=== PATIENT | female | born 1940 | race Caucasian/White ===

== ENCOUNTER 2024-03-22 23:14 | Inpatient (IN) | payer MEDICARE, OTHER ==
[2024-03-23 01:24] LABS: Basophils # (A) 0.1 k/uL (0-0.2); Basophils % (A) 1 %; Eosinophils # (A) 0.2 k/uL (0-0.7); Eosinophils % (A) 2 %; HCT 36.7 % (34.0-46.0); HGB 12.2 gm/dL (11.4-16.0); Lymphocytes # (A) 2.1 k/uL (1.0-4.8); Lymphocytes % (A) 23 %; MCH 30.7 pg (25.0-35.0); MCHC 33.4 g/dL (31.0-37.0); Mean Platelet Volume 7.5; Monocytes # (A) 0.6 k/uL (0-1.0); Monocytes % (A) 7 %; Neutrophils % (A) 67 %; Platelet Count 273 k/uL (150-450); RBC 3.99 m/uL (3.80-5.40); RDW 12.9 % (11.5-15.5)
[2024-03-23 01:38] LABS: African American GFR (CKD) 40 (>60 ml/min/1.73 sqM); Anion Gap 9 mmol/L; Blood Urea Nitrogen 25 mg/dL (7-17); C Reactive Protein 1.9 mg/dL (<1.0); Calcium 9.8 mg/dL (8.4-10.2); Carbon Dioxide 23 mmol/L (22-30); Chloride 105 mmol/L (98-107); Glucose 138 mg/dL (74-99); Non-African American GFR(CKD) 35 (>60 ml/min/1.73 sqM); Potassium 3.3 mmol/L (3.5-5.1); Sodium 137 mmol/L (137-145)
[2024-03-23] MEDS: IBUPROFEN 600 MG TAB PO STA (03:07)
[2024-03-23] MEDS: Acetaminophen-Codeine 300-30mg TAB PO STA (03:08)
[2024-03-23] MEDS ORDERED: NALOXONE 0.4 MG/ML 1 ML VIAL IV PRN (06:25)
[2024-03-23] MEDS ORDERED: Acetaminophen-Codeine 300-30mg TAB PO PRN (06:25)
--- NOTE | 2024-03-23 06:29 | ED ---
General Adult HPI - General Chief complaint: Skin/Abscess/Foreign Body Stated complaint: [place] Transfer Time Seen by Provider: 03/22/24 23:49 Source: patient Mode of arrival: ambulatory Limitations: no limitations - History of Present Illness Initial comments: Patient is an 83-year-old woman transferred from [facility] related to infection of the right second finger. The patient has been to the department in [place] twice for the same symptoms. She was seen the first time March 16 and started on doxycycline. The patient returned to the department there on March 19 she received a dose of IV Ancef and then was treated with Keflex. The patient returns today as the symptoms continued to worsen. While there she received dose of Onset/Timin -: week(s) Location: right, upper extremity Quality: aching Consistency: constant Improves with: none Worsens with: movement Associated Symptoms: denies other symptoms - Related Data Home Medications Medication Instructions Recorded Confirmed Memantine [Namenda] 10 mg PO DAILY 03/23/24 03/23/24 Metoprolol Tartrate [Lopressor] 50 mg PO BID 03/23/24 03/23/24 Previous Rx's Medication Instructions Recorded Colchicine [Colcrys] 0.6 mg PO BID 10 Days #18 each 03/26/24 Allergies Allergy/AdvReac Type Severity Reaction Status Date / Time peanut Allergy Unknown Verified 03/23/24 09:34 Childhood amoxicillin [From Augmentin] AdvReac Abdominal Verified 03/23/24 09:34 Pain choline fenofibrate AdvReac Unknown Verified 03/23/24 09:34 [From Trilipix] ciprofloxacin [From Cipro] AdvReac Unknown Verified 03/23/24 09:34 clavulanic acid AdvReac Abdominal Verified 03/23/24 09:34 [From Augmentin] Pain gabapentin AdvReac Unknown Verified 03/23/24 09:34 gemfibrozil AdvReac Unknown Verified 03/23/24 09:34 levofloxacin [From Levaquin] AdvReac Unknown Verified 03/23/24 09:34 lovastatin AdvReac Unknown Verified 03/23/24 09:34 montelukast [From Singulair] AdvReac Unknown Verified 03/23/24 09:34 naproxen AdvReac Abdominal Verified 03/23/24 09:34 Pain nitrofurantoin AdvReac Abdominal Verified 03/23/24 09:34 Pain omega-3 acid ethyl esters AdvReac Unknown Verified 03/23/24 09:34 [From Lovaza] pravastatin AdvReac Unknown Verified 03/23/24 09:34 rosuvastatin [From Crestor] AdvReac Unknown Verified 03/23/24 09:34 simvastatin AdvReac Unknown Verified 03/23/24 09:34 Sulfa (Sulfonamide AdvReac Abdominal Verified 03/23/24 09:34 Antibiotics) Pain sulfamethoxazole AdvReac Nausea Verified 03/23/24 09:34 [From Bactrim] trimethoprim [From Bactrim] AdvReac Nausea Verified 03/23/24 09:34 Review of Systems ROS Statement: Those systems with pertinent positive or pertinent negative responses have been documented in the HPI. ROS Other: All systems not noted in ROS Statement are negative. Constitutional: Denies: fever, chills Respiratory: Denies: cough, dyspnea Cardiovascular: Denies: chest pain, palpitations Gastrointestinal: Denies: abdominal pain Musculoskeletal: Reports: as per HPI, joint swelling Neurological: Denies: weakness, numbness Past Medical History Past Medical History: Hyperlipidemia Past Surgical History: No Surgical Hx Reported Past Psychological History: No Psychological Hx Reported Smoking Status: Never smoker Past Alcohol Use History: None Reported Past Drug Use History: None Reported General Exam Limitations: no limitations General appearance: alert, in no apparent distress Head exam: Present: atraumatic, normocephalic Eye exam: Absent: scleral icterus, conjunctival injection Respiratory exam: Present: normal lung sounds bilaterally. Absent: respiratory distress, wheezes, rales, rhonchi, stridor, accessory muscle use Cardiovascular Exam: Present: regular rate, normal rhythm, normal heart sounds. Absent: systolic murmur, diastolic murmur, rubs, gallop GI/Abdominal exam: Present: soft. Absent: tenderness Extremities exam: Present: tenderness, normal capillary refill Right Upper Arm exam: Present: normal inspection Elbow exam: Present: normal inspection, full ROM. Absent: tenderness, swelling Forearm Wrist exam: Present: normal inspection, full ROM. Absent: tenderness, swelling Hand Wrist exam: Present: tenderness, swelling, erythema. Absent: full ROM Vascular: Present: normal capillary refill. Absent: vascular compromise, pulse deficit radial art, pulse deficit ulnar art, pulse deficit brachial art Back exam: Present: normal inspection. Absent: CVA tenderness (R), CVA tende rness (L) Neurological exam: Present: alert. Absent: motor sensory deficit Skin exam: Present: warm, dry, intact, normal color. Absent: rash Course Vital Signs 03/22/24 03/23/24 03/23/24 23:27 02:10 06:30 Temperature 97.4 F L Pulse Rate 55 L 60 47 L Respiratory 20 18 18 Rate Blood Pressure 137/63 140/69 128/62 O2 Sat by Pulse 97 97 99 Oximetry 03/23/24 03/23/24 03/23/24 09:21 10:01 12:19 Temperature 96.8 F L 98.0 F Pulse Rate 50 L 47 L 50 L Respiratory 18 16 18 Rate Blood Pressure 141/57 136/56 146/66 O2 Sat by Pulse 98 99 100 Oximetry 03/23/24 14:48 Temperature 97.4 F L Pulse Rate 52 L Respiratory 18 Rate Blood Pressure 142/82 O2 Sat by Pulse 99 Oximetry Medical Decision Making - Medical Decision Making Was pt. sent in by a medical professional or institution (, PA, FAMILY LAW ATTORNEY, urgent care, hospital, or group home...) When possible be specific @ -[No] Did you speak to anyone other than the patient for history (EMS, parent, family, police, friend...)? What history was obtained from this source @ -[No] Did you review nursing and triage notes (agree or disagree)? Why? @ -[I reviewed and agree with nursing and triage notes] Were old charts reviewed (outside hosp., previous admission, EMS record, old EKG, old radiological studies, urgent care reports/EKG's, group home records)? Report findings @ -[No old charts were reviewed] Differential Diagnosis (chest pain, altered mental status, abdominal pain women, abdominal pain men, vaginal bleeding, weakness, fever, dyspnea, syncope, headache, dizziness, GI bleed, back pain, seizure, CVA, palpatations, mental health, musculoskeletal)? @ -[Differential Musculoskeletal Muscular strain, contusion, ligament sprain, fracture, arthritis, septic arthritis, bursitis, cellulitis, muscle spasm, nerve compression, DVT, arterial occlusion, herpes zoster, electrolyte abnormality, tumor.... This is not meant to be in all inclusive list EKG interpreted by me (3pts min.). @ -[As above] X-rays interpreted by me (1pt min.). @ -[None done] CT interpreted by me (1pt min.). @ -[None done] U/S interpreted by me (1pt. min.). @ -[None done] What testing was considered but not performed or refused? (CT, X-rays, U/S, labs)? Why? @ -[None] What meds were considered but not given or refused? Why? @ -[None] Did you discuss the management of the patient with other professionals (professionals i.e. , PA, FAMILY LAW ATTORNEY, lab, RT, psych nurse, social services counselor, take away man, teacher, production officer, therapeutic case manager)? Give summary @ -[Patient discussed with admitting physician and treatment recommendations are incorporated Was smoking cessation discussed for >3mins.? @ -[No] Was critical care preformed (if so, how long)? @ -[No] Were there social determinants of health that impacted care today? How? (Homelessness, low income, unemployed, alcoholism, drug addiction, transportation, low edu. Level, literacy, decrease access to med. care, intermediate, rehab)? @ -[No] Was there de-escalation of care discussed even if they declined (Discuss DNR or withdrawal of care, Hospice)? DNR status @ -[No] What co-morbidities impacted this encounter? (DM, HTN, Smoking, COPD, CAD, Cancer, CVA, ARF, Chemo, Hep., AIDS, mental health diagnosis, sleep apnea, morbid obesity)? @ -[None] Was patient admitted / discharged? Hospital course, mention meds given and route, prescriptions, significant lab abnormalities, going to OR and other pertinent info. @ -[Patient is an 83-year-old woman transferred here to have admission for finger infection including orthopedic surgery consultation. Undiagnosed new problem with uncertain prognosis? @ -[No] Drug Therapy requiring intensive monitoring for toxicity (Heparin, Nitro, Insulin, Cardizem)? @ -[No] Were any procedures done? @ -[No] Diagnosis/symptom? @ -[Acute finger infection Acute, or Chronic, or Acute on Chronic? @ -Acute Uncomplicated (without systemic symptoms) or Complicated (systemic symptoms)? @ -[Uncomplicated Side effects of treatment? @ -[No] Exacerbation, Progression, or Severe Exacerbation? @ -[No] Poses a threat to life or bodily function? How? (Chest pain, [place], [place], pneumonia, PE, COPD, DKA, ARF, appy, cholecystitis, CVA, Diverticulitis, Homicidal, Suic idal, threat to staff... and all critical care pts) @ -Yes, there is threat to hand function should the infection worsen - Lab Data Result diagrams: 03/24/24 07:30 03/25/24 06:26 Lab Results 03/23/24 03/23/24 03/24/24 Range/Units 00:55 00:55 07:30 WBC 9.0 6.3 (3.8-10.6) k/uL RBC 3.99 3.78 L (3.80-5.40) m/uL Hgb 12.2 11.6 (11.4-16.0) gm/dL Hct 36.7 35.4 (34.0-46.0) % MCV 92.0 93.8 (80.0-100.0) fL MCH 30.7 30.6 (25.0-35.0) pg MCHC 33.4 32.7 (31.0-37.0) g/dL RDW 12.9 12.8 (11.5-15.5) % Plt Count 273 236 (150-450) k/uL MPV 7.5 7.7 Neutrophils % 67 64 % Lymphocytes % 23 25 % Monocytes % 7 5 % Eosinophils % 2 4 % Basophils % 1 1 % Neutrophils # 6.0 4.1 (1.3-7.7) k/uL Lymphocytes # 2.1 1.6 (1.0-4.8) k/uL Monocytes # 0.6 0.3 (0-1.0) k/uL Eosinophils # 0.2 0.3 (0-0.7) k/uL Basophils # 0.1 0.0 (0-0.2) k/uL Sodium 137 (137-145) mmol/L Potassium 3.3 L (3.5-5.1) mmol/L Chloride 105 (98-107) mmol/L Carbon Dioxide 23 (22-30) mmol/L Anion Gap 9 mmol/L BUN 25 H (7-17) mg/dL Creatinine 1.39 H (0.52-1.04) mg/dL Est GFR (CKD-EPI)AfAm 40 (>60 ml/min/1.73 sqM) Est GFR (CKD-EPI)NonAf 35 (>60 ml/min/1.73 sqM) Glucose 138 H (74-99) mg/dL Uric Acid (3.7-7.4) mg/dL Calcium 9.8 (8.4-10.2) mg/dL Total Bilirubin (0.2-1.3) mg/dL AST (14-36) U/L ALT (4-34) U/L Alkaline Phosphatase (38-126) U/L C-Reactive Protein 1.9 H (<1.0) mg/dL Total Protein (6.3-8.2) g/dL Albumin (3.5-5.0) g/dL TSH (0.465-4.680) mIU/L Random Vancomycin ug/mL 03/24/24 03/25/24 Range/Units 07:30 06:26 WBC (3.8-10.6) k/uL RBC (3.80-5.40) m/uL Hgb (11.4-16.0) gm/dL Hct (34.0-46.0) % MCV (80.0-100.0) fL MCH (25.0-35.0) pg MCHC (31.0-37.0) g/dL RDW (11.5-15.5) % Plt Count (150-450) k/uL MPV Neutrophils % % Lymphocytes % % Monocytes % % Eosinophils % % Basophils % % Neutrophils # (1.3-7.7) k/uL Lymphocytes # (1.0-4.8) k/uL Monocytes # (0-1.0) k/uL Eosinophils # (0-0.7) k/uL Basophils # (0-0.2) k/uL Sodium 138 (137-145) mmol/L Potassium 3.8 (3.5-5.1) mmol/L Chloride 109 H (98-107) mmol/L Carbon Dioxide 22 (22-30) mmol/L Anion Gap 7 mmol/L BUN 26 H (7-17) mg/dL Creatinine 1.42 H 1.28 H (0.52-1.04) mg/dL Est GFR (CKD-EPI)AfAm 39 44 (>60 ml/min/1.73 sqM) Est GFR (CKD-EPI)NonAf 34 38 (>60 ml/min/1.73 sqM) Glucose 100 H (74-99) mg/dL Uric Acid 9.3 H (3.7-7.4) mg/dL Calcium 9.4 (8.4-10.2) mg/dL Total Bilirubin 0.6 (0.2-1.3) mg/dL AST 19 (14-36) U/L ALT 11 (4-34) U/L Alkaline Phosphatase 71 (38-126) U/L C-Reactive Protein (<1.0) mg/dL Total Protein 6.0 L (6.3-8.2) g/dL Albumin 3.5 (3.5-5.0) g/dL TSH 0.552 (0.465-4.680) mIU/L Random Vancomycin 12.3 ug/mL Disposition Clinical Impression: Cellulitis of right finger Disposition: ADMITTED IP TO THIS HOSP Condition: Good Is patient prescribed a controlled substance at d/c from ED?: No
[2024-03-23] MEDS ORDERED: VANCOMYCIN IV PER PHARMACY 1 EACH MISC MISCELLANE PRN (06:31)
[2024-03-23] MEDS: VANCOMYCIN 1,000 MG in SODIUM CHLORIDE 0.9% 250 ML IVPB ONE (07:05)
[2024-03-23] MEDS: SODIUM CHLORIDE 0.9% 1,000 ML IV SCH (07:05)
[2024-03-23] MEDS: FAMOTIDINE 20 MG TAB PO SCH (09:19)
--- NOTE | 2024-03-23 11:50 | P.CNOR ---
History of Present Illness - HPI Consult date: 03/23/24 History of present illness: This is an 83-year-old female who is admitted for an infection of the right index finger. Patient is seen and evaluated at bedside today. Patient states that she first noticed swelling in the finger on 03/16/2024. Patient states that she was pulling weeds the day before, but denied any known injury to the finger. Patient states that she has been on oral and IV antibiotics over the last week without any significant improvement. Patient denies any fever/chills, chest pain, shortness breath, abdominal pain, numbness, weakness or tingling. Patient's past medical history significant for hyperlipidemia. Review of Systems See HPI. Past Medical History Past Medical History: Hyperlipidemia Past Surgical History: No Surgical Hx Reported Past Psychological History: No Psychological Hx Reported Smoking Status: Never smoker Past Alcohol Use History: None Reported Past Drug Use History: None Reported Medications and Allergies Home Medications Medication Instructions Recorded Confirmed Type Memantine [Namenda] 10 mg PO DAILY 03/23/24 03/23/24 History Metoprolol Tartrate [Lopressor] 50 mg PO BID 03/23/24 03/23/24 History hydroCHLOROthiazide [Hydrodiuril] 25 mg PO DAILY 03/23/24 03/23/24 History Allergies Allergy/AdvReac Type Severity Reaction Status Date / Time peanut Allergy Unknown Verified 03/23/24 09:34 Childhood amoxicillin [From Augmentin] AdvReac Abdominal Verified 03/23/24 09:34 Pain choline fenofibrate AdvReac Unknown Verified 03/23/24 09:34 [From Trilipix] ciprofloxacin [From Cipro] AdvReac Unknown Verified 03/23/24 09:34 clavulanic acid AdvReac Abdominal Verified 03/23/24 09:34 [From Augmentin] Pain gabapentin AdvReac Unknown Verified 03/23/24 09:34 gemfibrozil AdvReac Unknown Verified 03/23/24 09:34 levofloxacin [From Levaquin] AdvReac Unknown Verified 03/23/24 09:34 lovastatin AdvReac Unknown Verified 03/23/24 09:34 montelukast [From Singulair] AdvReac Unknown Verified 03/23/24 09:34 naproxen AdvReac Abdominal Verified 03/23/24 09:34 Pain nitrofurantoin AdvReac Abdominal Verified 03/23/24 09:34 Pain omega-3 acid ethyl esters AdvReac Unknown Verified 03/23/24 09:34 [From Lovaza] pravastatin AdvReac Unknown Verified 03/23/24 09:34 rosuvastatin [From Crestor] AdvReac Unknown Verified 03/23/24 09:34 simvastatin AdvReac Unknown Verified 03/23/24 09:34 Sulfa (Sulfonamide AdvReac Abdominal Verified 03/23/24 09:34 Antibiotics) Pain sulfamethoxazole AdvReac Nausea Verified 03/23/24 09:34 [From Bactrim] trimethoprim [From Bactrim] AdvReac Nausea Verified 03/23/24 09:34 Physical Examination On exam patient is resting comfortably in bed in no acute distress. Patient is alert and oriented 3. On exam the right index finger is moderately swollen. There is minimal erythema and skin is intact. Patient has limited motion of the right index finger secondary to swelling. Capillary refill is normal at less than 2 seconds. Patient does have mild swelling over the second MCP joint. There is tenderness to palpation over the right index finger. No tenderness to palpation over the remainder of the right hand. Sensation intact. Right upper extremity is warm and well-perfused. Neurovascular status and circulatory status are intact. Results - Labs Labs: Abnormal Lab Results - Last 24 Hours (Table) 03/23/24 Range/Units 00:55 Potassium 3.3 L (3.5-5.1) mmol/L BUN 25 H (7-17) mg/dL Creatinine 1.39 H (0.52-1.04) mg/dL Glucose 138 H (74-99) mg/dL C-Reactive Protein 1.9 H (<1.0) mg/dL H & H 03/23/24 Range/Units 00:55 Hgb 12.2 (11.4-16.0) gm/dL Hct 36.7 (34.0-46.0) % Result Diagrams: 03/23/24 00:55 03/23/24 00:55 Assessment and Plan (1) Cellulitis of right finger Current Visit: Yes Status: Acute Code(s): L03.011 - CELLULITIS OF RIGHT FING ER SNOMED Code(s): 73133343 (2) Swelling of right index finger Current Visit: Yes Status: Acute Code(s): M79.89 - OTHER SPECIFIED SOFT TISSUE DISORDERS SNOMED Code(s): 996902705 Plan: 1. Continue IV antibiotics along with warm compresses. 2. Patient is encouraged to work on range of motion as tolerated. 3. There is no surgical intervention planned. We will continue to follow the patient closely.
[2024-03-23] MEDS ORDERED: HYDROmorphone 0.5 MG/0.5 ML SYRINGE IVP PRN (13:41)
[2024-03-23] MEDS: ACETAMINOPHEN TAB 325 MG TAB PO PRN (18:58)
[2024-03-23] MEDS: HEPARIN SODIUM,PORCINE 5,000 UNIT/ML 1 ML VIAL SQ SCH (20:17)
--- NOTE | 2024-03-23 21:51 | P.CONS ---
History of Present Illness - Reason for Consult Consult date: 03/23/24 Finger infection Requesting physician: Melecio Martin - Chief Complaint Right index finger swelling x few days - History of Present Illness Patient is a 83-year-old female with a past medical history significant for hyperlipidemia, patient has been brought into the hospital for evaluation of right index finger pain and swelling in this patient symptoms started on 03/16/2024 and apparently patient has been working out in the yard pulling out weeds is not very clear if she has injured it and did not recall any bug bite patient has been evaluated in the outpatient setting and has been treated with the oral antibiotic in the form of doxycycline however the patient did not have any improvement patient also have multiple antibiotic allergies and subsequently patient was advised to go to the hospital for IV antibiotic patient denies high- grade fever or any chills has been complaining of mostly diffuse swelling and redness to the right index finger area currently declining local wound or any drainage patient did have pain especially when the area is touched otherwise denies significant pain patient on presentation the hospital was afebrile and no fever have been found subsequently patient white count 9.0., Creatinine has been mildly elevated CRP was 1.9 blood cultures obtained which are currently pending patient did have a evaluation by orthopedics recommending medical treatment no x-ray of the hand has been done currently on vancomycin pharmacy to dose infectious he was consulted for further management of antibiotic therapy Review of Systems Positive point and negatives has been mentioned in the HPI, complete review of systems was performed and all other systems are negative Past Medical History Past Medical History: Hyperlipidemia Past Surgical History: No Surgical Hx Reported Past Psychological History: No Psychological Hx Reported Smoking Status: Never smoker Past Alcohol Use History: None Reported Past Drug Use History: None Reported Medications and Allergies Home Medications Medication Instructions Recorded Confirmed Type Memantine [Namenda] 10 mg PO DAILY 03/23/24 03/23/24 History Metoprolol Tartrate [Lopressor] 50 mg PO BID 03/23/24 03/23/24 History hydroCHLOROthiazide [Hydrodiuril] 25 mg PO DAILY 03/23/24 03/23/24 History Allergies Allergy/AdvReac Type Severity Reaction Status Date / Time peanut Allergy Unknown Verified 03/23/24 09:34 Childhood amoxicillin [From Augmentin] AdvReac Abdominal Verified 03/23/24 09:34 Pain choline fenofibrate AdvReac Unknown Verified 03/23/24 09:34 [From Trilipix] ciprofloxacin [From Cipro] AdvReac Unknown Verified 03/23/24 09:34 clavulanic acid AdvReac Abdominal Verified 03/23/24 09:34 [From Augmentin] Pain gabapentin AdvReac Unknown Verified 03/23/24 09:34 gemfibrozil AdvReac Unknown Verified 03/23/24 09:34 levofloxacin [From Levaquin] AdvReac Unknown Verified 03/23/24 09:34 lovastatin AdvReac Unknown Verified 03/23/24 09:34 montelukast [From Singulair] AdvReac Unknown Verified 03/23/24 09:34 naproxen AdvReac Abdominal Verified 03/23/24 09:34 Pain nitrofurantoin AdvReac Abdominal Verified 03/23/24 09:34 Pain omega-3 acid ethyl esters AdvReac Unknown Verified 03/23/24 09:34 [From Lovaza] pravastatin AdvReac Unknown Verified 03/23/24 09:34 rosuvastatin [From Crestor] AdvReac Unknown Verified 03/23/24 09:34 simvastatin AdvReac Unknown Verified 03/23/24 09:34 Sulfa (Sulfonamide AdvReac Abdominal Verified 03/23/24 09:34 Antibiotics) Pain sulfamethoxazole AdvReac Nausea Verified 03/23/24 09:34 [From Bactrim] trimethoprim [From Bactrim] AdvReac Nausea Verified 03/23/24 09:34 Physical Exam Vitals: Vital Signs Temp Pulse Resp BP Pulse Ox 03/23/24 14:48 97.4 F L 52 L 18 142/82 99 03/23/24 12:19 50 L 18 146/66 100 03/23/24 10:01 98.0 F 47 L 16 136/56 99 03/23/24 09:21 96.8 F L 50 L 18 141/57 98 03/23/24 06:30 47 L 18 128/62 99 03/23/24 02:10 60 18 140/69 97 03/22/24 23:27 97.4 F L 55 L 20 137/63 97 Intake and Output 03/23/24 03/23/24 03/23/24 06:59 14:59 22:59 Other: Weight 58.967 kg GENERAL DESCRIPTION: Elderly female lying in bed, no distress. No tachypnea or accessory muscle of respiration use. HEENT: Shows Pallor , no scleral icterus. Oral mucous membrane is dry. No pharyngeal erythema or thrush NECK: Trachea central, no thyromegaly. LUNGS: Unlabored breathing. Clear to auscultation anteriorly. No wheeze or crackle. HEART: S1, S2, regular rate and rhythm. No loud murmur ABDOMEN: Soft, no tenderness , guarding or rigidity, no organomegaly EXTREMITIES: Right index finger did have diffuse swelling mild warmth no significant redness, no wound or any drainage SKIN: No rash, no masses palpable. NEUROLOGICAL: The patient is awake, alert, oriented x3, mood and affect normal. Results CBC & Chem 7: 03/23/24 00:55 03/23/24 00:55 Labs: Abnormal Lab Results - Last 24 Hours (Table) 03/23/24 Range/Units 00:55 Potassium 3.3 L (3.5-5.1) mmol/L BUN 25 H (7-17) mg/dL Creatinine 1.39 H (0.52-1.04) mg/dL Glucose 138 H (74-99) mg/dL C-Reactive Protein 1.9 H (<1.0) mg/dL Assessment and Plan (1) Allergy to multiple antibiotics Current Visit: Yes Status: Acute Code(s): Z88.1 - ALLERGY STATUS TO OTHER ANTIBIOTIC AGENTS SNOMED Code(s): 817574542 (2) Cellulitis of right finger Current Visit: Yes Status: Acute Code(s): L03.011 - CELLULITIS OF RIGHT FINGER SNOMED Code(s): 65614429 (3) Swelling of right index finger Current Visit: Yes Status: Acute Code(s): M79.89 - OTHER SPECIFIED SOFT TISSUE DISORDERS SNOMED Code(s): 323568954 Plan: 1patient presented hospital a few swelling to the right index finger that has been going on for about a week apparently patient was working out in the hot and may have small injury prompting this swelling and redness concerning for mild cellulitis failing outpatient oral antibiotic therapy. 2patient with multiple antibiotic ALLERGIES that would limit the number of antibiotic safe to use. 3we will check x-rays of the right hand to make evidence of any foreign body or any bony changes and check uric acid level. 4vancomycin pharmacy to dose target trough of 15 while watching kidney function and Vanco trough closely. Multiple family members at the bedside question concern answered We will follow on clinical condition and cultures to further adjust medication if needed Thank you for this consultation we will follow the patient along with you Dictation was produced using [email or web address] dictation software. please excuse any grammatical, word or spelling errors. Time with Patient: Greater than 30
--- NOTE | 2024-03-24 00:06 | HP ---
HISTORY AND PHYSICAL CHIEF COMPLAINT: Pain and swelling of the right index finger. HISTORY OF PRESENT ILLNESS: This is an 83-year-old woman with a past medical history of multiple medical problems including hyperlipidemia, presented to [facility] at this time with pain and swelling of the right index finger. The patient noted swelling a few days ago. The patient had worked in the yard prior to that. No injury was noted. The patient without wearing gloves. The patient had oral antibiotics doxycycline. Because of lack of improvement, the patient came to [facility] and admitted for further evaluation and treatment. Orthopedic evaluation in progress. There is no history of any fever, rigors, or chills. PAST MEDICAL HISTORY: Reviewed include hyperlipidemia. HOME MEDICATIONS: Reviewed include Lopressor, dose and rest of medications reviewed. ALLERGIES: Multiple allergies reviewed include peanuts and rest of allergies are noted. FAMILY HISTORY: No history of heart disease or stroke in the family. SOCIAL HISTORY: No history of smoking or alcohol. REVIEW OF SYSTEMS: A 14-point review is negative except as mentioned earlier. PHYSICAL EXAMINATION: VITAL SIGNS: Pulse is 47, blood pressure 136/50, respirations 16. HEENT: Conjunctivae normal. NECK: No jugular venous distention. CARDIOVASCULAR: S1, S2. RESPIRATIONS: Diminished. ABDOMEN: Soft, nontender. LEGS: No edema, no swelling. NERVOUS SYSTEM: Nonfocal. EXTREMITIES: Examination showed the right hand index finger dactylitis present. LABORATORY DATA: Noted. ASSESSMENT: 1. Severe dactylitis and finger infection of the right index finger with failure of outpatient treatment. 2. Bradycardia. 3. Possible chronic kidney disease, stage III. 4. History of hyperlipidemia. 5. Multiple complex medical issues. RECOMMENDATIONS: This 83-year-old woman presented with multiple complex medical issues. We will monitor the patient closely. I will recommend broad-spectrum IV antibiotics. Vancomycin has been initiated, Infectious Disease as well as orthopedic evaluations. Monitor creatinine closely. IV fluids. Guarded prognosis because of multiple complex medical conditions. Further recommendations to follow. See orders for details. We will obtain blood cultures also. MMODL / IJN: [id number] / MTDD
[2024-03-24] MEDS: VANCOMYCIN 1,000 MG in SODIUM CHLORIDE 0.9% 250 ML IVPB ONE (06:06)
[2024-03-24 07:48] LABS: Basophils % (A) 1 %; Eosinophils # (A) 0.3 k/uL (0-0.7); Eosinophils % (A) 4 %; HCT 35.4 % (34.0-46.0); HGB 11.6 gm/dL (11.4-16.0); Lymphocytes # (A) 1.6 k/uL (1.0-4.8); Lymphocytes % (A) 25 %; MCH 30.6 pg (25.0-35.0); MCHC 32.7 g/dL (31.0-37.0); MCV 93.8 fL (80.0-100.0); Mean Platelet Volume 7.7; Monocytes # (A) 0.3 k/uL (0-1.0); Monocytes % (A) 5 %; Neutrophils # (A) 4.1 k/uL (1.3-7.7); Neutrophils % (A) 64 %; Platelet Count 236 k/uL (150-450); RBC 3.78 m/uL (3.80-5.40); RDW 12.8 % (11.5-15.5); WBC 6.3 k/uL (3.8-10.6)
--- NOTE | 2024-03-24 07:58 | P.HPIM ---
History of Present Illness this is a pleasant 83 years old female with past medical history of hyperlipidemia Presents because of right index finger swelling thought secondary to infection and cellulitis and constipation been treated with IV vancomycin ID team already evaluated the patient No need for surgical intervention per orthopedic team Patient denies any other complaints She is hemodynamically stable. She is mildly bradycardic with heart rate 47-52 Creatinine is elevated 1.39, unknown baseline CRP is elevated at 1.9 CBC is unremarkable Review of Systems Review of systems CONSTITUTIONAL: No fever, no malaise, no fatigue. HEENT: No recent visual problems or hearing problems. Denied any sore throat. CARDIOVASCULAR: No orthopnea, PND, no palpitations, no syncope. PULMONARY: No shortness of breath, no cough, no hemoptysis. GASTROINTESTINAL: No diarrhea, no nausea, no vomiting, no abdominal pain. Normoactive bowel sounds. NEUROLOGICAL: No headaches, no weakness, no numbness. HEMATOLOGICAL: Denies any bleeding or petechiae. GENITOURINARY: Denies any burning micturition, frequency, or urgency. MUSCULOSKELETAL/RHEUMATOLOGICAL: Denies any joint pain, swelling, or any muscle pain. ENDOCRINE: Denies any polyuria or polydipsia. Past Medical History Past Medical History: Hyperlipidemia History of Any Multi-Drug Resistant Organisms: None Reported Past Surgical History: No Surgical Hx Reported Past Psychological History: No Psychological Hx Reported Smoking Status: Never smoker Past Alcohol Use History: None Reported Past Drug Use History: None Reported Medications and Allergies Home Medications Medication Instructions Recorded Confirmed Type Memantine [Namenda] 10 mg PO DAILY 03/23/24 03/23/24 History Metoprolol Tartrate [Lopressor] 50 mg PO BID 03/23/24 03/23/24 History hydroCHLOROthiazide [Hydrodiuril] 25 mg PO DAILY 03/23/24 03/23/24 History Allergies Allergy/AdvReac Type Severity Reaction Status Date / Time peanut Allergy Unknown Verified 03/23/24 09:34 Childhood amoxicillin [From Augmentin] AdvReac Abdominal Verified 03/23/24 09:34 Pain choline fenofibrate AdvReac Unknown Verified 03/23/24 09:34 [From Trilipix] ciprofloxacin [From Cipro] AdvReac Unknown Verified 03/23/24 09:34 clavulanic acid AdvReac Abdominal Verified 03/23/24 09:34 [From Augmentin] Pain gabapentin AdvReac Unknown Verified 03/23/24 09:34 gemfibrozil AdvReac Unknown Verified 03/23/24 09:34 levofloxacin [From Levaquin] AdvReac Unknown Verified 03/23/24 09:34 lovastatin AdvReac Unknown Verified 03/23/24 09:34 montelukast [From Singulair] AdvReac Unknown Verified 03/23/24 09:34 naproxen AdvReac Abdominal Verified 03/23/24 09:34 Pain nitrofurantoin AdvReac Abdominal Verified 03/23/24 09:34 Pain omega-3 acid ethyl esters AdvReac Unknown Verified 03/23/24 09:34 [From Lovaza] pravastatin AdvReac Unknown Verified 03/23/24 09:34 rosuvastatin [From Crestor] AdvReac Unknown Verified 03/23/24 09:34 simvastatin AdvReac Unknown Verified 03/23/24 09:34 Sulfa (Sulfonamide AdvReac Abdominal Verified 03/23/24 09:34 Antibiotics) Pain sulfamethoxazole AdvReac Nausea Verified 03/23/24 09:34 [From Bactrim] trimethoprim [From Bactrim] AdvReac Nausea Verified 03/23/24 09:34 Physical Exam Vitals: Vital Signs Temp Pulse Pulse Resp BP BP Pulse Ox 03/24/24 07:00 97.5 F L 62 16 143/81 98 03/24/24 02:00 97.4 F L 64 17 134/67 99 03/23/24 19:17 98.1 F 69 18 174/65 98 03/23/24 14:48 97.4 F L 52 L 18 142/82 99 03/23/24 12:19 50 L 18 146/66 100 03/23/24 10:01 98.0 F 47 L 16 136/56 99 03/23/24 09:21 96.8 F L 50 L 18 141/57 98 Intake and Output 03/23/24 03/24/24 03/24/24 22:59 06:59 14:59 Intake Total 60 160 Balance 60 160 Intake: Intake, IV Titration 60 160 Amount Sodium Chloride 0.9% 1, 60 160 000 ml @ 20 mls/hr IV . Q24H [facility] Rx#:[id number] Other: # Voids 2 2 Weight 58.967 kg GENERAL: The patient is alert and oriented x3, not in any acute distress. Well developed, well nourished. HEENT: Pupils are round and equally reacting to light. EOMI. No scleral icterus. No conjunctival pallor. Normocephalic, atraumatic. No pharyngeal erythema. No thyromegaly. CARDIOVASCULAR: S1 and S2 present. No murmurs, rubs, or gallops. PULMONARY: Chest is clear to auscultation, no wheezing , no crackles. ABDOMEN: Soft, nontender, nondistended, normoactive bowel sounds. No palpable organomegaly. MUSCULOSKELETAL: No joint swelling or deformity. -EXTREMITIES: No cyanosis, clubbing, or pedal edema. middle phalanx of right index finger is swollen no significant tenderness or redness NEUROLOGICAL: Gross neurological examination did not reveal any focal deficits. SKIN: No rashes. no petechiae. Results CBC & Chem 7: 03/24/24 07:30 03/23/24 00:55 Labs: Abnormal Lab Results - Last 24 Hours (Table) 03/24/24 Range/Units 07:30 RBC 3.78 L (3.80-5.40) m/uL Assessment and Plan Assessment: Right index finger infection acute kidney injury versus chronic kidney disease, unknown baseline Sinus bradycardia Hyperlipidemia Plan: Continue with IV vancomycin ID and orthopedic consult monitor heart rates and check TSH GI prophylaxis Pepcid DVT prophylaxis heparin Prognosis is guarded
[2024-03-24 08:02] LABS: ALT 11 U/L (4-34); AST 19 U/L (14-36); African American GFR (CKD) 39 (>60 ml/min/1.73 sqM); Albumin 3.5 g/dL (3.5-5.0); Alkaline Phosphatase 71 U/L (38-126); Anion Gap 7 mmol/L; Blood Urea Nitrogen 26 mg/dL (7-17); Calcium 9.4 mg/dL (8.4-10.2); Carbon Dioxide 22 mmol/L (22-30); Chloride 109 mmol/L (98-107); Glucose 100 mg/dL (74-99); Non-African American GFR(CKD) 34 (>60 ml/min/1.73 sqM); Potassium 3.8 mmol/L (3.5-5.1); Sodium 138 mmol/L (137-145); Total Bilirubin 0.6 mg/dL (0.2-1.3); Uric Acid 9.3 mg/dL (3.7-7.4)
--- NOTE | 2024-03-24 08:46 | XR ---
EXAMINATION TYPE: XR hand complete RT DATE OF EXAM: 03/24/2024 CLINICAL HISTORY: pain TECHNIQUE: Frontal, lateral and oblique images of the right hand are obtained. COMPARISON: None. FINDINGS: There is no acute fracture/dislocation evident. The joint spaces appear within normal limi ts. The overlying soft tissue appears unremarkable. IMPRESSION: There is no acute fracture or dislocation ICD 10 NO FRACTURE, INITIAL EVALUATION
--- NOTE | 2024-03-24 11:20 | P.PN ---
Subjective Progress Note Date: 03/24/24 This is an 83-year-old female who is admitted for infection of the right index finger. Patient is seen and evaluated at bedside today. Patient states that her pain is very well controlled and she has noticed improvement in swelling. Patient denies any new complaints today. Objective - Vital Signs Vital signs: Vital Signs Temp 97.5 F L 03/24/24 07:00 Pulse 62 03/24/24 07:00 Resp 16 03/24/24 07:00 BP 143/81 03/24/24 07:00 Pulse Ox 98 03/24/24 07:00 FiO2 Intake & Output 03/23/24 03/24/24 03/24/24 18:59 06:59 18:59 Intake Total 220 Balance 220 Weight 58.967 kg Intake: Intake, IV Titration 220 Amount Sodium Chloride 0.9% 1, 220 000 ml @ 20 mls/hr IV . Q24H [facility] Rx#:[id number] Other: # Voids 2 - Exam On exam patient is resting comfortably in bed in no acute distress. Patient is alert and oriented 3. On exam the right index finger is moderately swollen, but improved from yesterday. There is minimal erythema and skin is intact. Patient has improved motion of the right index finger secondary. Capillary refill is normal at less than 2 seconds. Swelling over the 2nd MCP joint has fully improved. There is mild tenderness to palpation over the right index finger. No tenderness to palpation over the remainder of the right hand. Sensation intact. Right upper extremity is warm and well-perfused. Neurovascular status and circulatory status are intact. - Labs CBC & Chem 7: 03/24/24 07:30 03/24/24 07:30 Labs: Abnormal Lab Results - Last 24 Hours (Table) 03/24/24 03/24/24 Range/Units 07:30 07:30 RBC 3.78 L (3.80-5.40) m/uL Chloride 109 H (98-107) mmol/L BUN 26 H (7-17) mg/dL Creatinine 1.42 H (0.52-1.04) mg/dL Glucose 100 H (74-99) mg/dL Uric Acid 9.3 H (3.7-7.4) mg/dL Total Protein 6.0 L (6.3-8.2) g/dL Assessment and Plan (1) Cellulitis of right finger Current Visit: Yes Status: Acute Code(s): L03.011 - CELLULITIS OF RIGHT FINGER SNOMED Code(s): 10272147 (2) Swelling of right index finger Current Visit: Yes Status: Acute Code(s): M79.89 - OTHER SPECIFIED SOFT TISSUE DISORDERS SNOMED Code(s): 975816650 Plan: 1. Continue IV antibiotics along with warm compresses. 2. Patient is encouraged to work on range of motion as tolerated. 3. X-rays of the right hand dated 03/18/2024, 03/22/2024 and 03/24/2024 are reviewed and are negative for any fracture or foreign body. There is no surgical intervention planned. We will continue to follow as needed. Patient may follow up as an outpatient.
[2024-03-24] MEDS: HYDROcodone/APAP 5-325MG 1 EACH TAB PO PRN (14:00)
[2024-03-24] MEDS: COLCHICINE 0.6 MG EACH PO SCH (15:44)
--- NOTE | 2024-03-24 20:13 | P.PN ---
Subjective Progress Note Date: 03/24/24 Principal diagnosis: Reason for follow-up is right index finger swelling question of cellulitis versus gouty arthritis Patient is a 83-year-old female with a past medical history significant for hyperlipidemia, patient has been brought into the hospital for evaluation of right index finger pain and swelling in this patient symptoms started on 03/16/2024 and apparently patient has been working out in the yard failing outpatient oral antibiotic therapy. On today's evaluation that is 03/24/2024, Patient is afebrile this morning patient denies having any chest pain shortness of breath or cough, the patient is breathing comfortably and currently on room air, patient denies any abdominal pain no diarrhea no nausea no vomiting still complaining of swelling to the right index finger no significant redness or pain and no drainage. Patient did have a white count of 6.3 creatinine is 1.42 uric acid 9.3 X-Ray Did Not Show Any Bony Abnormality or Foreign Body Objective - Vital Signs Vital signs: Vital Signs Temp 97.5 F L 03/24/24 07:00 Pulse 62 03/24/24 07:00 Resp 16 03/24/24 07:00 BP 143/81 03/24/24 07:00 Pulse Ox 98 03/24/24 07:00 FiO2 Intake & Output 03/23/24 03/24/24 03/24/24 18:59 06:59 18:59 Intake Total 220 Balance 220 Weight 58.967 kg Intake: Intake, IV Titration 220 Amount Sodium Chloride 0.9% 1, 220 000 ml @ 20 mls/hr IV . Q24H [facility] Rx#:[id number] Other: # Voids 2 - Exam GENERAL DESCRIPTION: An elderly female lying in bed in no distress RESPIRATORY SYSTEM: Unlabored breathing , decreased breath sounds at bases HEART: S1 S2 regular rate and rhythm , ABDOMEN: Soft , no tenderness EXTREMITIES: Right ankle pain and did have some swelling no significant redness open wound or any drainage - Labs CBC & Chem 7: 03/24/24 07:30 03/24/24 07:30 Labs: Abnormal Lab Results - Last 24 Hours (Table) 03/24/24 03/24/24 Range/Units 07:30 07:30 RBC 3.78 L (3.80-5.40) m/uL Chloride 109 H (98-107) mmol/L BUN 26 H (7-17) mg/dL Creatinine 1.42 H (0.52-1.04) mg/dL Glucose 100 H (74-99) mg/dL Uric Acid 9.3 H (3.7-7.4) mg/dL Total Protein 6.0 L (6.3-8.2) g/dL Assessment and Plan (1) Allergy to multiple antibiotics Current Visit: Yes Status: Acute Code(s): Z88.1 - ALLERGY STATUS TO OTHER ANTIBIOTIC AGENTS SNOMED Code(s): 870855862 (2) Cellulitis of right finger Current Visit: Yes Status: Acute Code(s): L03.011 - CELLULITIS OF RIGHT FINGER SNOMED Code(s): 14032128 (3) Swelling of right index finger Current Visit: Yes Status: Acute Code(s): M79.89 - OTHER SPECIFIED SOFT TISSUE DISORDERS SNOMED Code(s): 501809372 Plan: 1patient presented hospital a few swelling to the right index finger that has been going on for about a week apparently patient was working out in the hot and may have small injury prompting this swelling and redness concerning for mild cellulitis failing outpatient oral antibiotic therapy. 2patient with multiple antibiotic ALLERGIES that would limit the number of antibiotic safe to use. 3 x-rays of the right hand with no evidence of any foreign body or any bony changes patient did have elevated uric acid level. 4we will add colchicine and see clinical response if did have improvement will recommend to discontinue vancomycin specially if the cultures are negative Dictation was produced using [employer] dictation software. please excuse any grammatical, word or spelling errors. Time with Patient: Less than 30
[2024-03-25 06:57] LABS: African American GFR (CKD) 44 (>60 ml/min/1.73 sqM); Non-African American GFR(CKD) 38 (>60 ml/min/1.73 sqM)
[2024-03-25 07:02] LABS: Vancomycin,Random 12.3 ug/mL
[2024-03-25] MEDS: VANCOMYCIN 1,000 MG in SODIUM CHLORIDE 0.9% 250 ML IVPB ONE (11:52)
--- NOTE | 2024-03-25 15:40 | P.PN ---
Subjective Progress Note Date: 03/25/24 83 years old female with past medical history of hyperlipidemia Presents because of right index finger swelling thought secondary to infection and cellulitis and constipation been treated with IV vancomycin ID team already evaluated the patient No need for surgical intervention per orthopedic team Patient denies any other complaints She is hemodynamically stable. She is mildly bradycardic with heart rate 47-52 Creatinine is elevated 1.39, unknown baseline CRP is elevated at 1.9 CBC is unremarkable Objective - Vital Signs Vital signs: Vital Signs Temp 97.8 F 03/25/24 07:35 Pulse 72 03/25/24 07:35 Resp 16 03/25/24 07:35 BP 163/69 03/25/24 07:35 Pulse Ox 98 03/25/24 07:35 FiO2 Intake & Output 03/24/24 03/25/24 03/25/24 18:59 06:59 18:59 Intake Total 750 Balance 750 Intake: Oral 750 Other: # Voids 2 2 # Bowel Movements 0 - Exam GENERAL: The patient is alert and oriented x3, not in any acute distress. Well developed, well nourished. HEENT: Pupils are round and equally reacting to light. EOMI. No scleral icterus. No conjunctival pallor. Normocephalic, atraumatic. No pharyngeal erythema. No thyromegaly. CARDIOVASCULAR: S1 and S2 present. No murmurs, rubs, or gallops. PULMONARY: Chest is clear to auscultation, no wheezing , no crackles. ABDOMEN: Soft, nontender, nondistended, normoactive bowel sounds. No palpable organomegaly. MUSCULOSKELETAL: No joint swelling or deformity. -EXTREMITIES: No cyanosis, clubbing, or pedal edema. middle phalanx of right index finger is swollen no significant tenderness or redness NEUROLOGICAL: Gross neurological examination did not reveal any focal deficits. SKIN: No rashes. no petechiae. - Labs CBC & Chem 7: 03/24/24 07:30 03/25/24 06:26 Labs: Abnormal Lab Results - Last 24 Hours (Table) 03/25/24 Range/Units 06:26 Creatinine 1.28 H (0.52-1.04) mg/dL Microbiology - Last 24 Hours (Table) 03/23/24 00:55 Blood Culture - Preliminary Blood Assessment and Plan Assessment: Right index finger infection acute kidney injury versus chronic kidney disease, unknown baseline Sinus bradycardia Hyperlipidemia Plan: Continue with IV vancomycin ID and orthopedic consult monitor heart rates and check TSH GI prophylaxis Pepcid DVT prophylaxis heparin
--- NOTE | 2024-03-25 16:36 | P.PN ---
Subjective Progress Note Date: 03/25/24 Principal diagnosis: Reason for follow-up is right index finger swelling question of cellulitis versus gouty arthritis Patient is a 83-year-old female with a past medical history significant for hyperlipidemia, patient has been brought into the hospital for evaluation of right index finger pain and swelling in this patient symptoms started on 03/16/2024 and apparently patient has been working out in the yard failing outpatient oral antibiotic therapy. On today's evaluation that is 03/25/2024,the patient denies any fever or any chills, patient is breathing comfortably on room air, the patient denies chest pain shortness of breath and no significant cough, patient denies abdominal pain, no nausea vomiting or diarrhea. Patient swelling and discomfort to the right index finger has decreased in intensity. Patient did have a creatinine 1.28 when creatinine was 12.3 blood culture has been negative Objective - Vital Signs Vital signs: Vital Signs Temp 97.3 F L 03/25/24 15:00 Pulse 70 03/25/24 15:00 Resp 16 03/25/24 15:00 BP 144/82 03/25/24 15:00 Pulse Ox 99 03/25/24 15:00 FiO2 Intake & Output 03/24/24 03/25/24 03/25/24 18:59 06:59 18:59 Intake Total 750 600 Balance 750 600 Intake: Oral 750 600 Other: # Voids 2 2 2 # Bowel Movements 0 0 - Exam GENERAL DESCRIPTION: An elderly female lying in bed in no distress RESPIRATORY SYSTEM: Unlabored breathing , decreased breath sounds at bases HEART: S1 S2 regular rate and rhythm , ABDOMEN: Soft , no tenderness EXTREMITIES: Right index finger swelling has slightly decreased - Labs CBC & Chem 7: 03/24/24 07:30 03/25/24 06:26 Labs: Abnormal Lab Results - Last 24 Hours (Table) 03/25/24 Range/Units 06:26 Creatinine 1.28 H (0.52-1.04) mg/dL Microbiology - Last 24 Hours (Table) 03/23/24 00:55 Blood Culture - Preliminary Blood Assessment and Plan (1) Allergy to multiple antibiotics Current Visit: Yes Status: Acute Code(s): Z88.1 - ALLERGY STATUS TO OTHER ANTIBIOTIC AGENTS SNOMED Code(s): 738070618 (2) Cellulitis of right finger Current Visit: Yes Status: Acute Code(s): L03.011 - CELLULITIS OF RIGHT FINGER SNOMED Code(s): 01936000 (3) Swelling of right index finger Current Visit: Yes Status: Acute Code(s): M79.89 - OTHER SPECIFIED SOFT TISSUE DISORDERS SNOMED Code(s): 145664479 Plan: 1patient presented hospital a few swelling to the right index finger that has been going on for about a week apparently patient was working out in the hot and may have small injury prompting this swelling and redness concerning for mild cellulitis failing outpatient oral antibiotic therapy. 2patient with multiple antibiotic ALLERGIES that would limit the number of antibiotic safe to use. 3 x-rays of the right hand with no evidence of any foreign body or any bony changes patient did have elevated uric acid level. 4patient seem to have shown improvement with addition of colchicine more likely representing gouty arthritis not infectious we will go ahead and discontinue vancomycin Multiple family members at the bedside questions were answered Dictation was produced using [employer] dictation software. please excuse any grammatical, word or spelling errors. Time with Patient: Less than 30
[2024-03-25] MEDS: METOPROLOL TARTRATE 50 MG TAB PO SCH (21:43)
[2024-03-25] MEDS: hydroCHLOROthiazide 25 MG TAB PO SCH (21:43)
[2024-03-26 07:36] VITALS: BP 150/69; PULSE 64; RESP 17; TEMP 97.7
[2024-03-26] MEDS: MEMANTINE 10 MG TAB PO SCH (08:54)
--- NOTE | 2024-03-26 16:34 | P.PN ---
Subjective Progress Note Date: 03/26/24 Principal diagnosis: Reason for follow-up is right index finger swelling question of cellulitis versus gouty arthritis Patient is a 83-year-old female with a past medical history significant for hyperlipidemia, patient has been brought into the hospital for evaluation of right index finger pain and swelling in this patient symptoms started on 03/16/2024 and apparently patient has been working out in the yard failing outpatient oral antibiotic therapy. On today's evaluation that is 03/26/2024,the patient remains to be afebrile, patient is on room air not requiring supplemental oxygen and denies any shortness of breath no chest pain or cough.Patient denies having any nausea or vomiting, no abdominal pain and no diarrhea has been reported patient complaining of slight more swelling to the right index finger today and pain. No new labs were obtained today blood culture so far negative Objective - Vital Signs Vital signs: Vital Signs Temp 97.7 F 03/26/24 07:00 Pulse 64 03/26/24 07:00 Resp 17 03/26/24 07:00 BP 150/69 03/26/24 07:00 Pulse Ox 98 03/26/24 07:00 FiO2 Intake & Output 03/25/24 03/26/24 03/26/24 18:59 06:59 18:59 Intake Total 600 120 Balance 600 120 Intake: Oral 600 120 Other: # Voids 2 1 2 # Bowel Movements 0 - Exam GENERAL DESCRIPTION: An elderly female lying in bed in no distress RESPIRATORY SYSTEM: Unlabored breathing , decreased breath sounds at bases HEART: S1 S2 regular rate and rhythm , ABDOMEN: Soft , no tenderness EXTREMITIES: Right index finger swelling has slightly decreased - Labs CBC & Chem 7: 03/24/24 07:30 03/25/24 06:26 Labs: Microbiology - Last 24 Hours (Table) 03/23/24 00:55 Blood Culture - Preliminary Blood Assessment and Plan (1) Allergy to multiple antibiotics Current Visit: Yes Status: Acute Code(s): Z88.1 - ALLERGY STATUS TO OTHER ANTIBIOTIC AGENTS SNOMED Code(s): 438133634 (2) Cellulitis of right finger Current Visit: Yes Status: Acute Code(s): L03.011 - CELLULITIS OF RIGHT FINGER SNOMED Code(s): 69556531 (3) Swelling of right index finger Current Visit: Yes Status: Acute Code(s): M79.89 - OTHER SPECIFIED SOFT TISSUE DISORDERS SNOMED Code(s): 657572655 Plan: 1patient presented hospital a few swelling to the right index finger that has been going on for about a week apparently patient was working out in the hot and may have small injury prompting this swelling and redness concerning for mild cellulitis failing outpatient oral antibiotic therapy. 2patient with multiple antibiotic ALLERGIES that would limit the number of antibiotic safe to use. 3 x-rays of the right hand with no evidence of any foreign body or any bony changes patient did have elevated uric acid level. 4patient complaining of more discomfort and swelling today no redness or appreciated we will repeat her CBC and CRP with a.m. labs continue with the colchicine Dictation was produced using [employer] dictation software. please excuse any grammatical, word or spelling errors. Time with Patient: Less than 30
--- NOTE | 2024-04-19 17:56 | CDI ---
Documentation Clarification Form Date: 04/19/2024 05:41:39 PM From: Allison Reagan Admit Date: 03/25/2024 03:11:00 PM Patient Name: Kayleigh Roche Visit Number: [id number] Discharge Date: 03/26/2024 04:45:00 PM ATTENTION: The Clinical Documentation Specialists (CDI) and [facility] Coding Staff appreciate your assistance in clarifying documentation. Please respond to the clarification below the line at the bottom and electronically sign. The CDI & [facility] Coding staff will review the response and follow-up if needed. Please note: Queries are made part of the Legal Health Record. If you have any questions, please contact the author of this message via ITS. Doctor/Provider: Amelia Chew Conflicting documentation has been found in the medical record. As attending physician, please provide clarification. Per your progress note 03/26/24, documentation states the patient has right index finger swelling in question of cellulitis versus gouty arthritis. History/Risk Factors: Patient is an 83 year old female with a past hx of hyperlipidemia Clinical Indicators: patient was brought in for right index finger pain and swelling. She had been working out in the yard pulling weeds, and is not clear if she injured it, does not recall any bug bites. x-ray: of the right hand with no evidence of any foreign body or any bony changes Per progress note 83: patient was working out in the heat and may have a small injury prompting this swelling and redness concerning for mild cellulitis, failed outpatient oral antibiotic therapy. Did have an elevated uric acid level. Per Progress note 82: patient seems to have shown improvement with addition of colchicine, more likely representing gouty arthritis not infectious, we will discontinue vancomycin. Blood culture-no growth Treatment: treated with oral antibiotics in the form of doxycycline; however, did not have any improvement. Admitted and started on vancomycin, with infectious disease consult. IV fluids. Vanco discontinued and started on colchicine . Please clarify which diagnosis is most appropriate: [ ] Cellulitis of the right index finger [ x] Gouty Arthritis of the right index finger [ ] Other (please specify) [ ] Unable to determine MTDD
--- NOTE | 2024-04-19 18:16 | CDI ---
Documentation Clarification Form Date: 04/19/2024 05:57:34 PM From: Allison Reagan Admit Date: 03/25/2024 03:11:00 PM Patient Name: Kayleigh Roche Visit Number: [id number] Discharge Date: 03/26/2024 04:45:00 PM ATTENTION: The Clinical Documentation Specialists (CDI) and [facility] Coding Staff appreciate your assistance in clarifying documentation. Please respond to the clarification below the line at the bottom and electronically sign. The CDI & [facility] Coding staff will review the response and follow-up if needed. Please note: Queries are made part of the Legal Health Record. If you have any questions, please contact the author of this message via ITS. Doctor/Provider: Hernán Velez Conflicting documentation has been found in the medical record. Please provide clarification. History and Physical from 03/23/24 states: possible chronic kidney disease, stage 3. Your Progress note from 03/25/24 states: acute kidney injury versus chronic kidney disease, unknown baseline. History/Risk Factors: Patient is an 83 year old female with a past hx of hyperlipidemia Clinical Indicators: patient was brought in for right index finger pain and swelling. She had been working out in the yard pulling weeds, and is not clear if she injured it, does not recall any bug bites. Diagnosed with possible right finger cellulitis vs gouty arthritis. She has sinus bradycardia, elevated uric acid level, elevated creatinine, and CRP is also elevated. Labs: BUN 03/23- 25, 03/24 - 26, Creatinine 03/23 - 1.39 , 03/24 1.42, 03/25 1.28 Blood culture-no growth Treatment: treated with oral antibiotics in the form of doxycycline; however, did not have any improvement. Admitted and started on vancomycin, with infectious disease consult. IV fluids. Vanco was discontinued and patient was started on colchicine Please clarify which diagnosis is most appropriate: [ ###] Acute Kidney Injury [ ] Chronic Kidney Disease stage 3 [ ] HAROLDO vs CKD ruled out/ not clinically significant [ ] Other (please specify) [ ] Unable to determine MTDD
== END 2024-03-26 16:45 | disposition home or self-care (01) | DRG 554 ==
LOC: EC 23:14 → 6NMEDSUR 03-23 06:27 → 1SOBS 03-23 13:24 → OBSVTOIN 03-25 15:11
PROVIDERS: ADMIT Hospitalist; ATTEND Hospitalist
DX: M10.041 Idiopathic gout, right hand (principal); N17.9 Acute kidney failure, unspecified; E78.5 Hyperlipidemia, unspecified; K59.00 Constipation, unspecified; R00.1 Bradycardia, unspecified; M25.441 Effusion, right hand; Z79.899 Other long term (current) drug therapy; Z88.1 Allergy status to other antibiotic agents; Z88.0 Allergy status to penicillin; Z88.8 Allergy status to other drugs, medicaments and biological substances; Z88.2 Allergy status to sulfonamides
CPT/HCPCS: 36415; 80048; 80053; 80202; 82565; 84443; 84550; 85025; 86140; 87040; 96365; 96366; 99285